=== PATIENT | female | born 1935 | race Caucasian/White ===

== ENCOUNTER 2021-03-01 07:04 | Emergency (ER) | payer OTHER ==
[~2021-03-01] VITALS: Ht 162.6 cm; Wt 63.5 kg
[~2021-03-01 07:04] MED LIST: CIPROFLOXACIN500 M1 PO; FLAGYL500 MG PO; PHENERGAN 25 MG25 M1 PO; PHENERGAN25 MG RECTAL; SYNTHROID88 MCG PO; ZOFRAN 4 MG ORAL4 M1 DIS
[2021-03-01 07:48] LABS: ABSOLUTE NEUTROPHILS 5.8 thou/uL (1.4-8.2); BASOPHILS 0.3 % (0.0-2.0); EOSINOPHILS 0.2 % (0.0-3.0); HEMATOCRIT 38.8 % (37.0-47.0); MCH 31.1 pg (26.0-34.0); MCHC 33.6 g/dL (28.0-37.0); MCV 92.5 fL (80.0-100.0); MONOCYTES 13.4 % (1.0-8.0); PLATELET COUNT 215 thou/uL (150-400); POLYS 72.1 % (36.0-66.0); RDW 13.9 % (10.5-14.5); WBC 8.1 thou/uL (4.0-11.0)
[2021-03-01 07:54] LABS: ANION GAP 10 mmol/L (7-16); BUN 15 mg/dL (7-18); CALCIUM 9.3 mg/dL (8.5-10.1); CHLORIDE 104 mmol/L (98-107); CO2 24 mmol/L (21-32); CREATININE 1.4 mg/dL (0.6-1.0); GLUCOSE 143 mg/dL (74-106); POTASSIUM 4.1 mmol/L (3.5-5.1); SODIUM 138 mmol/L (136-145)
[2021-03-01 08:02] LABS: APTT 25.4 Seconds (24.5-32.8); INR 0.96; PROTIME 10.5 Seconds (10.5-12.1)
[2021-03-01 08:04] LABS: ALBUMIN 3.6 g/dL (3.4-5.0); SGOT 13 U/L (15-37); SGPT 16 U/L (14-59); TOTAL BILIRUBIN 0.9 mg/dL (0.2-1.0); TOTAL PROTEIN 7.5 g/dL (6.4-8.2); TROPONIN-I <0.06 ng/mL (<0.06)
[2021-03-01] MEDS ORDERED: CIPROFLOXACIN500 M1 PO (09:48)
[2021-03-01] MEDS ORDERED: METRONIDAZOLE500 M4 PO (09:48)
[2021-03-01 10:05] VITALS: BP 118/56
--- NOTE | 2021-03-01 11:27 | EKG ---
[address] [address] ELECTROCARDIOGRAM REPORT Name: ELLEN VILLANUEVA Room #: DEP Timur#: [id number] Admission: 03/01/21 Attend Phys: Discharge: 03/01/21 Date of : 33 Report #: [id number] [facility] ED Test Date: 2021-03-01 Test Time: 07:44:17 Pat Name: ELLEN VILLANUEVA Department: Room: Gender: F Recycling Attendant: KF : 1935 Requested By: Franco Mo Order Number: [id number] MD: Andrez Burns Measurements Intervals [place] Rate: 78 P: 86 KS: 178 QRS: 23 QRSD: 86 T: 33 QT: 362 QTc: 413 Interpretive Statements Sinus rhythm No previous ECG available for comparison Electronically Signed On 03-01-2021 11:26:54 CDT by Andrez Burns [email or web address] <ELECTRONICALLY SIGNED> By: Andrez Burns MD 03/01/21 1126 0744 0744 Andrez Burns MD /EPI
== END 2021-03-01 10:05 | disposition home or self-care (01) ==
LOC: ER 07:04
PROVIDERS: Emergency Medicine
DX: K52.9 Noninfective gastroenteritis and colitis, unspecified (principal); E03.9 Hypothyroidism, unspecified; Z79.899 Other long term (current) drug therapy; Z79.2 Long term (current) use of antibiotics

== ENCOUNTER → 2021-03-19 | Outpatient (CLI) | payer OTHER ==
[~2021-03-19] MED LIST changes: +METRONIDAZOLE500 M4 PO
--- NOTE | 2021-03-21 08:28 | P ---
[facility] [place] [address] PROCEDURE REPORT Name: ELLEN VILLANUEVA Room #: REG Jony Ding#: [id number] Admission: 03/19/21 Attend Phys: Mark Newsome Discharge: Date of : 33 Report #: [id number] THIS REPORT FOR: cc: Felton Le MD, Steven A. MD McElhinney, Christian C. MD ~ DOC #: [id number] cc: MD Mark Grace MD DATE OF SERVICE: 03/19/2021 PROCEDURE PERFORMED: Colonoscopy with polypectomy. HISTORY OF PRESENT ILLNESS: The patient is an 85-year-old female approximately 1 month ago had an episode of sudden crampy abdominal pain followed by bloody diarrhea, this lasted for several weeks. She had a CT scan of the abdomen and pelvis on 03/01/2021 showing marked left colon wall thickening suggesting colitis, diffuse inflammation infiltration, ischemia or inflammatory bowel disease possible. She was treated with antibiotics and her symptoms have now resolved. On CT, they did mention that her major mesenteric vessels to enhance. There is a family history of colon cancer in a great grandmother. Plan is for colonoscopy. DESCRIPTION OF PROCEDURE: The risks and benefits of the procedure were explained to the patient, those risks including but not limited to bleeding, perforation and the risk of sedation. She understood these risks and gave informed consent. Sedation was given using propofol per anesthesia. Next, a digital rectal exam was initially performed, which was normal. Next, using a standard Olympus colonoscope, the scope was placed in the patient's anus and advanced under direct vision to the cecum. The overall prep was good. In the cecum, a 6 mm sessile polyp was noted. This was removed by snare cautery, otherwise normal. The ileocecal valve was normal. The ascending, transverse, descending, and sigmoid colon were all normal. The rectal mucosa was normal. There was no evidence of colitis or inflammation throughout the exam today. A small external nonbleeding hemorrhoid was also noted. The scope was then withdrawn and the procedure terminated. The patient tolerated the procedure well. IMPRESSION: 1. Cecal polyp. 2. Small external hemorrhoids. 3. Otherwise, normal colonoscopy. RECOMMENDATIONS: 1. Await biopsy results. [address] [address] PROCEDURE REPORT Name: ELLEN VILLANUEVA Room #: REG TINOJony Ding#: [id number] Admission: 03/19/21 Attend Phys: Mark Newsome Discharge: Date of : 33 Report #: [id number] 2. Suspect the patient had an episode of ischemic colitis, which is now resolved. Of note, a CT did mention mesenteric vessels to enhance at this point would observe. Thank you for allowing me to participate in her care. Mark Loaiza MD CCM/ALL <ELECTRONICALLY SIGNED> By: Mark Loaiza MD 03/21/21 0828 1151 2216 Mark Loaiza MD /nt
--- NOTE | 2021-03-24 18:06 | PATH ---
[facility] [address] [place] [address] PATHOLOGY RPT PROCEDURE Name: ENE VILLANUEVA Room #: REG [facility] Timur#: [id number] Admission: 03/19/21 Date of : 33 Discharge: Report #: [id number] Path Case #: [id number] [facility] Accession Number: [id number] . 01 Material submitted: . cecum - CECAL POLYP HOT SNARE . 01 Clinical history: . COLONOSCOPY COLITIS . 02 Diagnosis: Polyp, cecal polyp, endoscopic biopsy: - Tubular adenoma. - Negative for high-grade dysplasia. (IUV:pit; 03/24/2021) QTP 03/24/2021 1516 Local . 02 Electronically signed: . Yamilet Gordon MD, Pathologist NPI- [id number] . 01 Gross description: . The specimen is received in formalin, labeled "Weishar, Ene, cecal polyp". Received are multiple segments of pale lewis tissue ranging in size from 0.3 to 0.6 cm in maximum dimensions. The specimen is submitted entirely in cassette A1.([facility]; 03/21/2021) [facility] 03/21/2021 1546 Local . 02 Pathologist provided ICD-10: D12.0 . 02 CPT . 724979 Specimen Comment: A courtesy copy of this report has been sent to [phone], [phone] Specimen Comment: [id number] Specimen Comment: Report sent to / DR GALVIN Performed at: [address] [facility], [place] [id number] MD Ford Patiño MD Phone: [phone] Performed at: [address] [id number] MD Yamilet Gordon MD Phone: [phone]
== END | disposition home or self-care (01) ==
LOC: GI 10:27
PROVIDERS: ATTEND Specialist
DX: K52.9 Noninfective gastroenteritis and colitis, unspecified (principal); R93.3 Abnormal findings on diagnostic imaging of other parts of digestive tract; D12.0 Benign neoplasm of cecum; K64.4 Residual hemorrhoidal skin tags; E03.9 Hypothyroidism, unspecified; Z80.0 Family history of malignant neoplasm of digestive organs; Z98.890 Other specified postprocedural states; Z79.899 Other long term (current) drug therapy
CPT/HCPCS: 62110; 62900